=== PATIENT | female | born 1975 | race Caucasian/White ===

== ENCOUNTER 2018-01-20 05:49 | Day surgery (SDC) | payer BC ==
[~2018-01-20] VITALS: Ht 157.5 cm; Wt 92.1 kg
[2018-01-20] MEDS ORDERED: LR 1,000 ML IV.SOLN IV ONE (07:05)
[2018-01-20] MEDS ORDERED: PROPOFOL 200MG/ 20ML VIAL (DIPRIVAN) IV ONE (07:05)
[2018-01-20] MEDS ORDERED: MIDAZOLAM HCL 5 MG/5 ML VIAL IVP ONE (07:05)
[2018-01-20] MEDS ORDERED: ONDANSETRON HCL 4 MG/2 ML VIAL IVP ONE (07:05)
[2018-01-20] MEDS ORDERED: SEVOFLURANE 15 MIN GAS INH ONE (07:05)
[2018-01-20] MEDS ORDERED: fentaNYL CITRATE 250 MCG/5 ML AMP IV ONE (07:05)
[2018-01-20] MEDS ORDERED: KETOROLAC TROMETHAMINE 30 MG VIAL IVP ONE (07:05)
[2018-01-20] MEDS ORDERED: ROCURONIUM BROMIDE 10 MG/ML (ZEMURON) IV ONE (07:05)
[2018-01-20] MEDS ORDERED: DEXAMETHASONE SOD PHOSPHATE 4 MG/ML VIAL IVP ONE (07:05)
[2018-01-20] MEDS ORDERED: NS 1000 ML IV.SOLN IV ONE (07:05)
[2018-01-20] MEDS ORDERED: METOCLOPRAMIDE HCL 10 MG/2 ML VIAL IVP ONE (07:05)
[2018-01-20] MEDS ORDERED: IOHEXOL 50 ML IV ONE (07:42)
[2018-01-20] MEDS ORDERED: CEFAZOLIN 1 GM IVPB PREMIX 50 ML IV ONE (08:00)
[2018-01-20 08:03] LABS: HCG,QUAL RESULT NEGATIVE (NEGATIVE)
[2018-01-20] MEDS ORDERED: LR 1,000 ML IV SCH (08:48)
[2018-01-20] MEDS ORDERED: D5/0.45 NS 1,000 ML IV SCH (08:53)
[2018-01-20] MEDS ORDERED: HYDROcodone/ACETAMIN 5-325 MG TAB (NORCO/ VICODIN) PO PRN ×2 (09:00)
[2018-01-20] MEDS ORDERED: HYDROmorphone 2 MG/ML VIAL IVP PRN ×2 (09:00)
[2018-01-20] MEDS ORDERED: MEPERIDINE HCL/PF 25 MG/ML DISP.SYRIN IVP PRN (09:00)
[2018-01-20] MEDS ORDERED: HYDROmorphone 1 MG INJ. 1 MG/ML AMPUL IVP PRN ×2 (09:00)
[2018-01-20 11:41] VITALS: BP_SYST 113
== END 2018-01-20 12:05 | disposition home or self-care (01) ==
LOC: SDS 05:49 → SMU 05:51 → SDS 12:05
PROVIDERS: ATTEND Colon & Rectal Surgery
DX: K80.10 Calculus of gallbladder with chronic cholecystitis without obstruction (principal); I10 Essential (primary) hypertension; K21.9 Gastro-esophageal reflux disease without esophagitis; E78.00 Pure hypercholesterolemia, unspecified; E66.9 Obesity, unspecified; Z82.49 Family history of ischemic heart disease and other diseases of the circulatory system; Z80.42 Family history of malignant neoplasm of prostate; Z68.36 Body mass index [BMI] 36.0-36.9, adult; Z79.899 Other long term (current) drug therapy
CPT/HCPCS: 47563; 74300; 76000; 84703; 88304; C1727; C1758; J0690; J1100; J1885; J2250; J2405; J2704; J2765; J3010; J7030; J7120; Q9967